=== PATIENT | female | born 1950 | race African-American/Black ===

== ENCOUNTER 2018-09-08 18:05 | Emergency (ER) | payer OTHER ==
[~2018-09-08] VITALS: Ht 170.2 cm; Wt 70.0 kg
[2018-09-08] MEDS ORDERED: MORPHINE SULFATE 4 MG/ML CPJ (NOT FOR IM USE) IV STA (19:35)
[2018-09-08] MEDS ORDERED: KETOROLAC 30MG/ML VIAL IM ONE (19:45)
[2018-09-08 23:37] VITALS: BP 120/70
== END 2018-09-08 23:38 | disposition home or self-care (01) ==
LOC: ER 18:05
DX: S70.12XA Contusion of left thigh, initial encounter (principal); F07.81 Postconcussional syndrome; R55 Syncope and collapse; R51 Headache; R07.89 Other chest pain; M79.602 Pain in left arm; V49.49XA Driver injured in collision with other motor vehicles in traffic accident, initial encounter; Y93.89 Activity, other specified; Y92.89 Other specified places as the place of occurrence of the external cause; Y99.8 Other external cause status
CPT/HCPCS: 70450; 72125; 96372; 96374; 99284; J1885; J2270